=== PATIENT | male | born 1965 | race Asian ===

== ENCOUNTER 2016-11-16 17:45 | Emergency (ER) | payer OTHER ==
[2016-11-16 19:41] VITALS: BP 122/74
== END 2016-11-16 19:41 | disposition home or self-care (01) ==
LOC: ED 17:45
DX: S61.512A Laceration without foreign body of left wrist, initial encounter (principal); X58.XXXA Exposure to other specified factors, initial encounter; Y93.89 Activity, other specified; Y99.8 Other external cause status; Y92.89 Other specified places as the place of occurrence of the external cause
CPT/HCPCS: 90715; J2001